=== PATIENT | male | born 1955 | race African-American/Black ===

== ENCOUNTER 2016-09-16 10:42 | Emergency (ER) | payer MEDICAID ==
[~2016-09-16] VITALS: Ht 162.6 cm; Wt 55.0 kg
[~2016-09-16 10:42] MED LIST: ANUCORT-HC25 MG RE; BENZTROPINE0.5 MG PO; HALOPERIDOL5 MG PO
[2016-09-16] MEDS ORDERED: TOBRAMYCIN0.3 % OD (11:06)
[2016-09-16 11:15] VITALS: BP 119/79
== END 2016-09-16 11:15 | disposition home or self-care (01) | DRG 125 ==
LOC: ED 10:42
DX: H10.9 Unspecified conjunctivitis (principal)

== ENCOUNTER 2017-03-02 11:03 | Emergency (ER) | payer MEDICAID ==
[~2017-03-02] VITALS: Ht 162.6 cm; Wt 50.4 kg
[~2017-03-02 11:03] MED LIST changes: +TOBRAMYCIN0.3 % OD
[2017-03-02] MEDS ORDERED: BENZTROPINE0.5 MG PO (11:18)
[2017-03-02] MEDS ORDERED: HALDOL5 MG PO (11:19)
[2017-03-02] MEDS ORDERED: TAMSULOSIN0.4 MG PO (12:02)
[2017-03-02] MEDS ORDERED: CIPROFLOXACIN250 MG PO (12:02)
[2017-03-02 12:19] LABS: URINE BILIRUBIN - DIPSTICK NEGATIVE (NEGATIVE); URINE BLOOD DIPSTICK MODERATE (NEGATIVE); URINE CLARITY CLEAR; URINE COLOR YELLOW; URINE GLUCOSE - DIPSTICK NEGATIVE (NEGATIVE); URINE KETONE NEGATIVE (NEGATIVE); URINE LEUK ESTERASE NEGATIVE (NEGATIVE); URINE NITRITE - DIPSTICK NEGATIVE (Negative); URINE PROTEIN - DIPSTICK NEGATIVE (NEG-TRACE); URINE SPECIFIC GRAVITY 1.025; URINE UROBILINOGEN - DIPSTICK 0.2 E.U./dL (0.2)
[2017-03-02 12:33] LABS: URINE SQUAMOUS EPITHELIAL CELL FEW EPI/hpf (0-FEW)
[2017-03-02 12:40] VITALS: BP 133/72
== END 2017-03-02 12:48 | disposition home or self-care (01) | DRG 696 ==
LOC: ED 11:03
PROVIDERS: Emergency Medicine
PROC: 0T9B70Z Drainage of Bladder with Drainage Device, Via Natural or Artificial Opening (ICD-10-PCS; principal; 2017-03-02)
DX: R33.9 Retention of urine, unspecified (principal); F20.9 Schizophrenia, unspecified; F17.210 Nicotine dependence, cigarettes, uncomplicated

== ENCOUNTER 2017-04-16 10:46 | Emergency (ER) | payer MEDICAID ==
[~2017-04-16] VITALS: Ht 152.4 cm; Wt 54.0 kg
[~2017-04-16 10:46] MED LIST changes: +CIPROFLOXACIN250 MG PO; +HALDOL5 MG PO; +TAMSULOSIN0.4 MG PO
[2017-04-16] MEDS ORDERED: SEPTRA4001 PO (12:04)
[2017-04-16 12:09] LABS: URINE BILIRUBIN - DIPSTICK NEGATIVE (NEGATIVE); URINE BLOOD DIPSTICK LARGE (NEGATIVE); URINE COLOR YELLOW; URINE GLUCOSE - DIPSTICK NEGATIVE (NEGATIVE); URINE KETONE NEGATIVE (NEGATIVE); URINE LEUK ESTERASE NEGATIVE (NEGATIVE); URINE NITRITE - DIPSTICK NEGATIVE (Negative); URINE PROTEIN - DIPSTICK NEGATIVE (NEG-TRACE); URINE UROBILINOGEN - DIPSTICK 0.2 E.U./dL (0.2)
[2017-04-16 12:16] VITALS: BP 149/74
[2017-04-16 12:19] LABS: URINE CLARITY CLEAR
[2017-04-16 12:31] LABS: URINE WBC 0-2 WBC/hpf (0-5)
== END 2017-04-16 12:17 | disposition home or self-care (01) | DRG 696 ==
LOC: ED 10:46
PROVIDERS: Emergency Medicine
PROC: 0T9B70Z Drainage of Bladder with Drainage Device, Via Natural or Artificial Opening (ICD-10-PCS; principal; 2017-04-16)
DX: R33.9 Retention of urine, unspecified (principal)

== ENCOUNTER 2017-05-30 12:08 | Emergency (ER) | payer MEDICAID ==
[~2017-05-30] VITALS: Ht 162.6 cm; Wt 48.6 kg
[~2017-05-30 12:08] MED LIST changes: +SEPTRA4001 PO
[2017-05-30] MEDS ORDERED: FINASTERIDE5 MG PO (13:01)
[2017-05-30 14:13] VITALS: BP 164/89
== END 2017-05-30 14:13 | disposition home or self-care (01) | DRG 700 ==
LOC: ED 12:08
PROC: 0T2BX0Z Change Drainage Device in Bladder, External Approach (ICD-10-PCS; principal; 2017-05-30)
DX: T83.011A Breakdown (mechanical) of indwelling urethral catheter, initial encounter (principal)

== ENCOUNTER 2017-07-24 10:21 | Emergency (ER) | payer MEDICAID ==
[~2017-07-24] VITALS: Ht 162.6 cm; Wt 50.0 kg
[~2017-07-24 10:21] MED LIST changes: +FINASTERIDE5 MG PO
[2017-07-24] MEDS ORDERED: TOBRAMYCIN0.3 % OU (10:38)
[2017-07-24 10:53] VITALS: BP 118/72
== END 2017-07-24 10:52 | disposition home or self-care (01) | DRG 125 ==
LOC: ED 10:21
DX: H10.33 Unspecified acute conjunctivitis, bilateral (principal)

== ENCOUNTER 2017-08-07 07:44 | Day surgery (SDC) | payer MEDICAID ==
[~2017-08-07] VITALS: Ht 162.6 cm; Wt 52.2 kg
[~2017-08-07 07:44] MED LIST changes: +TOBRAMYCIN0.3 % OU
[2017-08-07 12:22] VITALS: BP 110/80
== END 2017-08-07 12:45 | disposition home or self-care (01) | DRG 951 ==
LOC: ENDO 07:44
PROVIDERS: ATTEND Surgery
PROC: 0DJD8ZZ Inspection of Lower Intestinal Tract, Via Natural or Artificial Opening Endoscopic (ICD-10-PCS; principal; 2017-08-07)
DX: Z12.11 Encounter for screening for malignant neoplasm of colon (principal); K64.8 Other hemorrhoids

== ENCOUNTER 2020-10-06 10:54 | Emergency (ER) | payer MEDICARE, MEDICAID ==
[~2020-10-06] VITALS: Ht 162.6 cm; Wt 63.6 kg
[2020-10-06 12:07] VITALS: BP 130/82
== END 2020-10-06 12:10 | disposition home or self-care (01) ==
LOC: ED 10:54
PROC: 3E1B78Z Irrigation of Ear using Irrigating Substance, Via Natural or Artificial Opening (ICD-10-PCS; principal; 2020-10-06)
PROC: 3E1B78Z Irrigation of Ear using Irrigating Substance, Via Natural or Artificial Opening (ICD-10-PCS; 2020-10-06)
DX: H61.23 Impacted cerumen, bilateral (principal); F17.210 Nicotine dependence, cigarettes, uncomplicated

== ENCOUNTER 2022-02-28 09:23 | Emergency (ER) | payer MEDICARE, MEDICAID ==
[~2022-02-28] VITALS: Ht 162.6 cm; Wt 50.0 kg
[2022-02-28 10:15] LABS: IMMATURE GRANULOCYTES 0.7 % (0.0-5.0); MEAN CORPUSCULAR HGB 21.1 pG CALC (26.0-32.0); MEAN CORPUSCULAR HGB CONC 31.4 g/dL CAL (32.0-36.0); NEUT# 10.5 thou/uL (1.82-7.42); RED BLOOD COUNT 2.56 mill/uL (4.70-6.10); RED CELL DISTRI WIDTH 19.5 % (11.5-15.5)
[2022-02-28 10:34] LABS: HEMOGLOBIN 5.4 g/dl (14.0-18.0); MEAN CELL VOLUME 67.2 fL CALC (80.0-100.0)
[2022-02-28 10:35] LABS: HEMATOCRIT 17.2 % (39.0-50.0)
[2022-02-28 10:37] LABS: ALBUMIN 3.8 g/dL (3.2-5.0); BILIRUBIN, TOTAL 0.3 mg/dL (0.0-1.4); MAGNESIUM 1.6 mg/dL (1.6-2.3); TOTAL PROTEIN 8.9 g/dL (6.3-8.2)
[2022-02-28 10:40] LABS: POTASSIUM 6.9 mmol/l (3.5-5.1)
[2022-02-28 11:18] LABS: URINE BILIRUBIN - DIPSTICK NEGATIVE (NEGATIVE); URINE BLOOD DIPSTICK TRACE-INTACT (NEGATIVE); URINE COLOR YELLOW; URINE GLUCOSE - DIPSTICK NEGATIVE (NEGATIVE); URINE KETONE NEGATIVE (NEGATIVE); URINE PROTEIN - DIPSTICK TRACE mg/dL (NEG-TRACE); URINE UROBILINOGEN - DIPSTICK 0.2 E.U./dL (0.2)
[2022-02-28 11:20] LABS: URINE LEUK ESTERASE MODERATE (NEGATIVE); URINE NITRITE - DIPSTICK NEGATIVE (Negative)
[2022-02-28 11:24] LABS: URINE BACTERIA MODERATE hpf; URINE RBC 0-2 RBC/hpf (0-5); URINE WBC 50-100 WBC/hpf (0-5)
[2022-02-28 11:57] VITALS: BP 151/83
[2022-02-28 12:18] VITALS: BP 159/88
[2022-02-28 13:03] VITALS: BP 162/96
[2022-02-28 13:30] VITALS: BP 162/96
[2022-02-28 13:32] VITALS: BP 162/96
== END 2022-02-28 13:37 | disposition short-term general hospital (02) ==
LOC: ED 09:23
PROVIDERS: Family Medicine
PROC: 30233N1 Transfusion of Nonautologous Red Blood Cells into Peripheral Vein, Percutaneous Approach (ICD-10-PCS; principal; 2022-02-28)
DX: D64.9 Anemia, unspecified (principal); N39.0 Urinary tract infection, site not specified; N13.30 Unspecified hydronephrosis; N17.9 Acute kidney failure, unspecified; N32.9 Bladder disorder, unspecified; E87.5 Hyperkalemia; E87.20 Acidosis, unspecified; C79.51 Secondary malignant neoplasm of bone; R91.1 Solitary pulmonary nodule; F17.200 Nicotine dependence, unspecified, uncomplicated; Z85.46 Personal history of malignant neoplasm of prostate; Z20.822 Contact with and (suspected) exposure to COVID-19
CPT/HCPCS: P9016